=== PATIENT | female | born 1985 | race Caucasian/White ===

== ENCOUNTER 2019-10-25 12:39 | Emergency (ER) | payer OTHER ==
[2019-10-25 14:30] LABS: #Eosinphils 0.2 thou/uL (0.0-0.7); #Lymphocytes 2.2 thou/uL (1.20-3.40); #Monocytes 0.6 thou/uL (0.11-0.59); #Neutrophils 6.7 thou/uL (1.40-6.50); %Basophils 0.2 % (0.0-1.0); %Eosinophils 1.6 % (0.0-10.0); %Lymphocytes 22.9 % (21.0-51.0); %Neutrophils 69.3 % (42.0-75.0); Hemoglobin 13.9 g/dL (12.0-16.0); Mean Corpuscular HGB CONC 34.7 g/dL (32.0-36.0); Mean Corpuscular Hemoglobin 30.6 pg (27.0-31.0); Mean Corpuscular Volume 87.9 fL (78.0-98.0); Mean Platelet Volume 7.2 fL (7.4-10.4); Platelet Count 243 thou/uL (130-400); RBC Distribution Width 11.9 % (11.5-14.5); Red Blood Cell (RBC) Count 4.56 mill/uL (4.20-5.40); White Blood Cell (WBC) Count 9.6 thou/uL (4.8-10.8)
[2019-10-25 14:37] LABS: BHCG - Serum POSITIVE (NEGATIVE); Pregs Control Background? CLEAR/WHITE (CLR/WHITE); Pregs Control Bar Appear? YES (CONTROL BAR)
[2019-10-25 15:00] LABS: Bacteria/HPF 2+ HPF (None Seen); Bilirubin Negative (Negative); Blood, Urine 3+ (Negative); Clarity Clear (Clear); Glucose, Urine (Dipstick) Normal (Negative); Leukocyte 25 Leu/uL (Negative); Nitrite Negative (Negative); Protein, Urine (Dipstick) 10 mg/dL (Neg-Trace); Squamous Epithelial 0-3 HPF (0-3); Urobilinogen Normal mg/dL (Less than 2)
--- NOTE | 2019-10-25 16:04 | ULT ---
Pelvic ultrasound HISTORY: Vaginal bleeding COMPARISON: None. FINDINGS: Real-time imaging of the pelvis was obtained both transabdominally as well as within endova ginal probe. This shows an irregularly shaped gestational sac measuring 2.8 x 3.8 cm in size. There is a pole measuring 1.9 cm. No heart tone or activity is seen. The pole is di screpant in size in comparison to the gestational sac. The right and left ovaries are normal in size and appearance. Doppler evaluation with spectral analysis: Normal flow shown to the ovaries.. IMPRESSION: Findings compatible with demise. The crown to rump length measurements are 8 weeks 2 days and gestational sac measurements are 10 weeks 4 days.
[2019-10-25] MEDS ORDERED: Ibuprofen 200 MG TAB ONE (16:08)
[2019-10-25] MEDS ORDERED: Misoprostol 200 MCG TAB PO SCH (17:15)
== END 2019-10-25 17:18 | disposition home or self-care (01) ==
LOC: ERS 12:39
DX: O03.9 Complete or unspecified spontaneous abortion without complication (principal); Z3A.12 12 weeks gestation of pregnancy
CPT/HCPCS: 36415; 76856; 81003; 81015; 84702; 84703; 85025; 86900; 86901; 87086

== ENCOUNTER 2019-10-25 21:08 | Observation (INO) | payer OTHER ==
[2019-10-25] MEDS ORDERED: Ondansetron ODT 4 MG TAB ONE (21:40)
[2019-10-25 22:08] LABS: #Eosinphils 0.1 thou/uL (0.0-0.7); #Lymphocytes 2.4 thou/uL (1.20-3.40); #Monocytes 0.6 thou/uL (0.11-0.59); #Neutrophils 9.1 thou/uL (1.40-6.50); %Basophils 0.4 % (0.0-1.0); %Eosinophils 0.6 % (0.0-10.0); %Lymphocytes 19.5 % (21.0-51.0); %Monocytes 5.1 % (0.0-10.0); %Neutrophils 74.4 % (42.0-75.0); Hemoglobin 12.9 g/dL (12.0-16.0); Mean Corpuscular HGB CONC 34.5 g/dL (32.0-36.0); Mean Corpuscular Hemoglobin 30.5 pg (27.0-31.0); Mean Corpuscular Volume 88.5 fL (78.0-98.0); Mean Platelet Volume 7.4 fL (7.4-10.4); Platelet Count 269 thou/uL (130-400); RBC Distribution Width 12.2 % (11.5-14.5); Red Blood Cell (RBC) Count 4.23 mill/uL (4.20-5.40); White Blood Cell (WBC) Count 12.2 thou/uL (4.8-10.8)
[2019-10-25 22:31] LABS: ALT (SGPT) 12 U/L (8-55); AST (SGOT) 14 U/L (5-34); Albumin 3.8 g/dL (3.5-5.0); Alkaline Phosphatase 51 U/L (40-110); Anion Gap 13 mmol/L (10-20); BUN (Urea Nitrogen) 8 mg/dL (7.0-18.7); Bilirubin, Total 0.7 mg/dL (0.2-1.2); Calc. Creatinine Clearance 0 mL/min (70-130); Calcium 9.1 mg/dL (7.8-10.44); Carbon Dioxide 23 mmol/L (22-29); Chloride 105 mmol/L (98-107); Estimated GFR-MDRD Greater than 90; Globulin 2.5 g/dL (2.4-3.5); Glucose 132 mg/dL (70-105); Potassium 3.6 mmol/L (3.5-5.1); Protein, Total 6.3 g/dL (6.0-8.3); Sodium 137 mmol/L (136-145)
--- NOTE | 2019-10-25 22:40 | ULT ---
Exam: Pelvic ultrasound HISTORY: Vaginal bleeding with clots and pelvic cramping pain. Patient reports increased vaginal bleeding wit h nausea vomiting and near syncope. COMPARISON: None TECHNIQUE: Multiple grayscale and color Doppler images were obtained in a transabdominal and transvag inal pelvic ultrasound. Spectral analysis of the Doppler waveforms of the ovaries were performed. FINDINGS: The uterus is retroflexed. Previously noted enlarged gestational sac within the endometrial canal not ed on the prior exam is not seen on the current study. The endometrium is thickened on the current study measuring 1.7 cm and does demonstrate mild heterogeneity which could be related to retained pro ducts of conception or hemorrhage. Trace amount of free fluid is seen in the cul-de-sac. RIGHT OVARY: Normal flow, without focal mass. LEFT OVARY:Not visualized. IMPRESSION: Thickened heterogeneous endometrium with absence of previously noted fluid collection in the endometr ium. The heterogeneous thickened endometrial may be related to retained products of conception versus hemorrhage.
[2019-10-25 23:02] LABS: INR-International Normal Ratio 1.1; Prothrombin Time 13.9 SEC (12.0-14.7)
[2019-10-26] MEDS ORDERED: Zolpidem Tartrate 5 MG TAB PO SCH (00:45)
[2019-10-26] MEDS ORDERED: Ondansetron PF 4 MG/2 ML Vial IVP PRN (00:45)
[2019-10-26] MEDS ORDERED: Ibuprofen 600 MG TAB PO PRN (00:46)
--- NOTE | 2019-10-26 07:38 | DIS ---
DATE OF ADMISSION: 10/25/2019 DATE OF DISCHARGE: 10/26/2019 ADMITTING DIAGNOSES: 1. Status post spontaneous . 2. Hypotension. 3. Pallor. DISCHARGE DIAGNOSIS: Resolved. [employer] ME[employer]IC: Paul Gr, [facility], [place], [place]. Phone number is [phone]. CHIEF COMPLAINT: Hypotension and dizziness. HISTORY OF PRESENT ILLNESS: The patient is a 34-year-old multiparous female, who is re-presenting to the emergency room after experiencing heavy bleeding and clotting and passage of tissue at the house with persistent bleeding. The patient was seen earlier in the day and was diagnosed with incomplete AB, and was discharged home on Cytotec. Down in the emergency room, the patient was noted to have hypotension with blood pressures in the 70s over 40s and 80s over 50s, and pallid and feeling dizzy and lightheaded. The patient was admitted to the floor for observation and serial H and H. The patient on the time of exam confirmed history. She is visiting her grandparents from [place] and has a primary OB back in [place], [place]. She reports at the time of our evaluation that her bleeding has since slowed down significantly and that she continues to bleed still a little bit and cramping has gotten better. The patient does report that she is a little bit lightheaded still, and the patient denies chills, fever, diarrhea, flank pain, vomiting, hematuria, melena, nausea, night sweats, syncope, trauma, signs of urinary tract infection, vomiting. PAST MEDICAL HISTORY: Negative. PAST SURGICAL HISTORY: Negative. SOCIAL HISTORY: Denies drug or tobacco use. Drinks weekly at home. ALLERGIES: NO KNOWN DRUG ALLERGIES. MEDICATIONS: vitamins. The patient is being prescribed Cytotec and Vicodin at her previous ER visit. Had not taken the Cytotec yet. PHYSICAL EXAMINATION: VITAL SIGNS: Here on the floor, blood pressure 91/51, pulse 70, temperature 99, saturating 98% on room air. GENERAL: She appears to be in no acute distress. She has good color in her skin and good capillary refill on her nails. LUNGS: Clear. HEART: Has a regular rate and rhythm. ABDOMEN: Soft. EXTREMITIES: Nontender and nonedematous. : Has been deferred at this time. IMAGING STUDIES: Pelvic ultrasound shows a thickened endometrium with the absence of previously noted fluid in the endometrium. LABORATORY DATA: A CBC is pending. This morning, the patient is reporting that she is feeling much better, that she has no symptoms as related to yesterday, is able to ambulate without problems, get up and go the bathroom. CBC is pending. DISCHARGE INSTRUCTIONS: The patient is being discharged to home. She has instructions to follow up with her primary OB in the next week or 2, or sooner if she experiences increasing bleeding, fever, or pain. The patient has a prescription for Cytotec at home and Vicodin that she can take p.r.n. for pain control. Of note, the CBC will be followed up with here shortly, and I do not anticipate needing a blood transfusion at this time. Job ID: [id number]
[2019-10-26 08:09] VITALS: BP 91/50; TEMP 98.5
[2019-10-26 08:22] LABS: #Eosinphils 0.1 thou/uL (0.0-0.7); #Monocytes 0.4 thou/uL (0.11-0.59); #Neutrophils 4.3 thou/uL (1.40-6.50); %Basophils 0.2 % (0.0-1.0); %Eosinophils 0.8 % (0.0-10.0); %Lymphocytes 29.9 % (21.0-51.0); %Monocytes 6.1 % (0.0-10.0); %Neutrophils 63.1 % (42.0-75.0); Hemoglobin 9.5 g/dL (12.0-16.0); Mean Corpuscular HGB CONC 34.5 g/dL (32.0-36.0); Mean Platelet Volume 7.7 fL (7.4-10.4); Platelet Count 212 thou/uL (130-400); Red Blood Cell (RBC) Count 3.05 mill/uL (4.20-5.40); White Blood Cell (WBC) Count 6.8 thou/uL (4.8-10.8)
== END 2019-10-26 10:00 | disposition home or self-care (01) ==
LOC: ERS 21:08 → 3SE 22:34
PROVIDERS: ADMIT Obstetrics & Gynecology; ATTEND Obstetrics & Gynecology
DX: O03.6 Delayed or excessive hemorrhage following complete or unspecified spontaneous abortion (principal); I95.9 Hypotension, unspecified; Z79.899 Other long term (current) drug therapy
CPT/HCPCS: 36415; 76856; 80053; 83605; 84702; 85025; 85610; 85730; 86850; 86900; 86901; 96360; G0378; Q0162